=== PATIENT | female | born 1985 | race Caucasian/White ===

== ENCOUNTER → 2019-02-16 21:49 | Observation (INO) ==
[2019-02-16 20:12] LABS: Amphetamine Screen,Urine Negative ng/mL (Cutoff=1000); Barbiturate Screen,Urine Negative ng/mL (Cutoff=200); Benzodiazepines Screen,Urine Negative ng/mL (Cutoff=200); Cannabinoid Screen,Urine Positive ng/mL (Cutoff = 50); Cocaine Screen,Urine Negative ng/mL (Cutoff= 300); Opiate Screen,Urine Negative ng/mL (Cutoff=300); Phencyclidine Screen,Urine Negative ng/mL (Cutoff=25)
--- NOTE | 2019-02-16 20:44 | OB/GYN Progress Note ---
Date of Encounter: 02/16/19 Time of Encounter: 20:40 - Assessment and Plan (1) and not yet delivered in third trimester Current Visit: Yes Status: Acute (2) 40 weeks gestation of Current Visit: Yes Status: Acute (3) Grand multipara Current Visit: Yes Status: Acute (4) False labor after 37 completed weeks of gestation Current Visit: Yes Status: Acute Patient will be discharged home will return in a couple days for an elective induction of labor Subjective - Subjective Interval history: Patient is a 33-year-old 9 para 6026 at 40 and one sevenths weeks who was sent in from the office for induction of labor secondary to term history of hepatitis B and C positive and Subutex use. Patient has been noncompliant with her care care at approximately 15 weeks then did not get seen again until 24 weeks and 30 weeks and 37 weeks and on. Patient is GBS positive and because of her history she was sent to labor and delivery f or delivery. Due to our nursery being completely full patient was advised we would need to transfer her to [facility] for this delivery. Did advise a if she refused we could do the delivery but at the baby needed to go to the NICU the baby would have to go to [place] also. She did not want to do that either. Did try to explain to her unfortunately with her history the baby probably is going to require some time in the unit so it would be best just to transfer her and the baby and let them deliver in [place]. The case was discussed with maternal medicine who did agree the patient should be delivered at some point. Patient's baby is moving well she is not having any contractions and denies any leaking of fluid. At this point since patient is refusing to be transferred and does not want a baby to be transferred we did give her the option of coming back in a couple days for scheduled induction at that point the NICU should be cleaned out some and we should not have any issues if the baby needs go to the unit. Patient states she preferred to do that was made aware if she was to go into labor to come immediately back to the hospital we would then reassess her if she needed to be delivered would deliver and then addressed the baby at that time. Objective - Vital Signs Vital Signs: Intake and Output 02/16/19 02/16/19 02/16/19 07:59 15:59 23:59 Other: Weight 73.5 kg Patient Weight 02/16/19 23:59 Weight 73.5 kg - Exam FHR: category 1 FHR comments: heart tones 140s and reactive no contactions seen Auscultation: bilateral: normal Abdomen: Present: normal appearance, soft Cervical dilation: 2 Cervix effacement: 80 station: -2 - Labs Labs: Abnormal lab results Ur Buprenorphine Scrn Positive ng/mL (Cutoff=5) H 02/16/19 19:52 U Marijuana (THC) Screen Positive ng/mL (Cutoff = 50) H 02/16/19 19:52
--- NOTE | 2019-02-16 22:39 | Discharge Summary ---
Date of Encounter: 02/16/19 Time of Encounter: 22:38 - Discharge Diagnosis (1) 40 weeks gestation of Priority: Primary Status: Acute Comments: Admitted to observation for monitoring and possible delivery (2) Grand multipara Priority: Secondary Status: Acute Comments: Scheduled induction on 02/19/19 at 1000 (3) Hepatitis C Priority: Secondary Status: Acute Qualifiers: Viral hepatitis chronicity: chronic Hepatic coma status: without hepatic coma Qualified Code(s): B18.2 - Chronic viral hepatitis C (4) GBS (group B Streptococcus carrier), +RV culture, currently Priority: Secondary Status: Acute Comments: Treat with PCN-G per protocol. (5) Hepatitis B affecting in third trimester, antepartum Priority: Secondary Status: Acute Comments: Redraw HBSAG on admission for IOL Treat with HBIG (6) NST (non-stress test) reactive Priority: Secondary Status: Acute Comments: FHR 120 bpm, moderate variability, +15x15 accels, no decels. - Discharge Medications Prescriptions: No Action Buprenorphine HCl [Subutex] 8 mg SL DAILY Home Medications: Buprenorphine HCl [Subutex] 8 mg SL DAILY 12/05/18 [History] Allergies/Adverse Reactions: Allergy/AdvReac Type Severity Reaction Status Date / Time No Known Allergies Allergy Verified 12/05/18 08:10 Data Procedures and tests throughout hospitalization: Laboratory Tests 02/16/19 19:52 Urine Opiates Screen Negative Ur Buprenorphine Scrn Positive H Ur Barbiturates Screen Negative Ur Phencyclidine Scrn Negative Ur Amphetamines Screen Negative U Benzodiazepines Scrn Negative Urine Cocaine Screen Negative U Marijuana (THC) Screen Positive H Ur Drug Screen Interp See Below Labs on day of discharge: Labs from last 24 hours 02/16/19 19:52 Urine Opiates Screen Negative Ur Buprenorphine Scrn Positive H Ur Barbiturates Screen Negative Ur Phencyclidine Scrn Negative Ur Amphetamines Screen Negative U Benzodiazepines Scrn Negative Urine Cocaine Screen Negative U Marijuana (THC) Screen Positive H Ur Drug Screen Interp See Below Date of admission: 02/16/19 18:35 Discharging clinician: Baylee Joseph Anticipated date of discharge: 02/16/19 - Patient Status Disposition: Home, Self-Care Condition: Good Functional capacity at discharge: independent ambulation Overall status at discharge: patient is progressing back to baseline - Discharge Instructions Additional Instructions: LABOR AND DELIVERY DISCHARGE INSTRUCTIONS Signs and Symptoms to be Reported to your Doctor Immediately: * Sudden gush, continuous or intermittent lead of fluid from vagina (note the time of gush and color of fluid) * Onset of bright red vaginal bleeding with or without pain (if you had a vaginal exam during this visit you may notice some dark red spotting. This is normal.) * Contractions that are 5 minutes apart (from the beginning of one contraction to the beginning of the next) and last 45-60 seonds; contractions that you can no longer walk, talk or laugh through. * A change in the baby's activity. This could be an increase or decrease in activity. * Severe headache which does not go away with tylenol. * Sudden swelling in the face, hands, arms and/or legs. * Upper abdominal pain - sometimes associated with heartburn or nausea and is not relieved by Maalox, Mylanta or Tums. * Kick Counts __ One hour after a meal, lay down on one side in a quiet place. Count the number of time the baby moves during an hour. If less than 6 movements, notify your physician Diet: *Force fluids, 8 to 10 tall glasses of fluid per day - may include popsicles and jello *Limit caffeine - this includes chocolate, coffee, tea, any soft drink containing such as all jacek, Pihllip Yellow and Mountain Dew - Diet and Activity Activity: resume usual activities as tolerated Diet: regular diet Hospital Course [employer] Hospital course: See antepartum note from Dr. Lees Patient was agreeable to IOL on 02/19/[address] Lora was notified and is agreeable to induction on this date. [facility] was consulted by Dr. Lees. Time Attestation: Total time spent providing and/or coordinating discharge services: Time Spent: Less than 30 minutes Exam - Constitutional General appearance IM: A&O X 3, no acute distress - Respiratory Respiratory exam: Absent: respiratory distress - Cardiovascular Cardiovascular exam IM: Absent: irregular rhythm - GI/Abdominal GI/Abdominal exam IM: normal bowel sounds - Rectal Rectal exam: deferred - External exam: normal external exam - Extremities Exam Extremities exam IM: Present: full ROM, normal capillary refill, normal inspection. Absent: calf tenderness - Neurological Exam Neurological exam: alert, normal gait, oriented X3 - VTE Reasons for not Prescribing Prophylaxis: Treatment not Indicated - Low risk for VTE
== END | disposition home or self-care (01) ==
LOC: 1NENULAB
PROVIDERS: ADMIT Registered Nurse; ATTEND Registered Nurse

== ENCOUNTER 2019-02-19 10:00 | Inpatient (IN) ==
[2019-02-19] MEDS ORDERED: Metoclopramide 10 MG/2 ML VIAL IVP PRN (11:06)
[2019-02-19] MEDS ORDERED: Famotidine 20 MG/2 ML VIAL IVP PRN (11:06)
[2019-02-19] MEDS ORDERED: Lidocaine 1% 20 ML MDV INFILT PRN (11:06)
[2019-02-19] MEDS ORDERED: Naloxone 0.4 MG/ML INJ IVP PRN (11:06)
[2019-02-19] MEDS ORDERED: Ondansetron 4 MG/2 ML VIAL IVP PRN (11:06)
[2019-02-19] MEDS ORDERED: Penicillin G Potassium 5,000,000 UNIT in 0.9 % Sodium Chloride Mini Bag 100 ML IVPB ONE (11:27)
[2019-02-19] MEDS ORDERED: Ringers Solution, Lactated 0 ML ONE (11:41)
[2019-02-19] MEDS ORDERED: Oxytocin 20 units/ LR 1000 mL 20 UNIT/1,000 ML BAG IVC SCH (12:15)
--- NOTE | 2019-02-19 12:45 | OB/GYN History & Physical ---
Date of Encounter: 02/19/19 Time of Encounter: 12:38 Assessment and Plan (1) 40 weeks gestation of Current visit: Yes Status: Acute 33yo at 40+4wks GA who presents for scheduled IOL 1. Hx of polysubstance abust: - Patient UTox: + positive for amphetamine, MJ, narcotic positive subutex - Medical history: +HCV, +HBV, no FSE - GBS positive, ABx ordered for pateint - ARCADIO normal for GA, measuring appropriately - recommendatoin for delivery 2/2 parida and concern for PSA 2. FWB - s = d - denies VB/LOF/contraction(s) 3. MWB - normotensive - VSS/HDS, afebrile - denies VB/LOF/contractions [facility] [place]. MD LOUIE History of Present Illness Chief complaint: IOL HPI: Ms. Evans is a 33 year old female who preesmnts for schedule IOL at 40+4wks GA for HROB and dates The patient is HROB 2/2 hx of PSA. Patient is currently being seen with [facility] for her Subutex rx. Her PNC was scant with Dr. Salas, at which point she discussed her addiction, drug abuse, and poor dentition. This patient is also high risk, 2/2 hx of 5+ vaginal deliveries (grandmultigravida). She has a known hx of HBV and HCV. The patient was first seen by OBGYN on Friday 02/16 at which point the recommendation was for induction of labor, but the patient declined. She had issues with child-care and therefore was unable to stay - despite our education on the risks of continuing through with . Patient is aware that we will be unable to be perform scalp FSE due to medical hx of HCV. Patient is GBS positive, will need antibiotics. Past Med Surg Social Fam HX - Past Medical History Medical history: no medical history, other Additional medical history: BACK INJURY Psychiatric history: no psych history - Past Surgical History Additional surgical history: gall bladder removed 2000 - Social History Smoking Status: Current every day smoker Smokeless Tobacco Status: No Alcohol use: none Drug use: marijuana - Family History Mother Living Status: Hx Family Cancer: Yes (kidney cancer) Obstetrical History - Pregnancies : 9 Para: 6 Term: 6 : 0 Ab's: 2 Livin Medications and Allergies Buprenorphine HCl [Subutex] 8 mg SL BID 12/05/18 [History] Allergy/AdvReac Type Severity Reaction Status Date / Time No Known Allergies Allergy Verified 12/05/18 08:10 Exam - Constitutional Constitutional: well developed, well nourished, no acute distress, average body habitus - HEENT HEENT: Normocephaly, Mucus Membranes Moist - Neck Neck exam: full ROM - Lungs Respiratory exam: CTAB - Cardiovascular Cardiovascular exam: RRR - Abdomen Abdomen: Present: bowel sounds normal - Extremities Extremities exam: full ROM - Vagina Vagina: Present: normal moisture - Cervix Dilation: 2 Effacement: 70 Station: -2 - Uterus Uterus exam: Present: normal size, normal contour - Anus/Rectum Anus/Rectum: Present: normal perianal skin, heme negative Results All other labs normal. - VTE Reasons for not Prescribing Prophylaxis: Treatment not Indicated - Low risk for VTE
[2019-02-19 12:58] LABS: Basophils # 0.1 K/mcL (0.0-0.2); Basophils % 0.7 %; Eosinophils # 0.2 K/mcL (0.0-0.6); Eosinophils % 1.8 %; Hematocrit 37.7 % (35.3-44.9); Immature Granulocytes % 0.8 % (0-4); Lymphocytes % 22.2 %; Mean Corpuscular HGB Conc 34.5 g/dL (31.6-35.5); Mean Corpuscular Hemoglobin 32.2 pg (28.0-33.3); Mean Corpuscular Volume 93.3 fL (83.0-100.0); Mean Platelet Volume 10.9 fL (9.4-12.4); Monocytes # 0.8 K/mcL (0.0-1.3); Monocytes % 8.5 %; Neutrophils # 5.8 K/mcL (1.6-8.9); Platelet Count 274 K/mcL (140-400); Red Blood Count 4.04 M/mcL (3.82-4.97); Red Cell Distribution Width 14.2 % (11.5-14.5); White Blood Count 8.8 K/mcL (4.3-11.1)
[2019-02-19 13:17] LABS: Amphetamine Screen,Urine Negative ng/mL (Cutoff=1000); Barbiturate Screen,Urine Negative ng/mL (Cutoff=200); Benzodiazepines Screen,Urine Negative ng/mL (Cutoff=200); Cannabinoid Screen,Urine Positive ng/mL (Cutoff = 50); Cocaine Screen,Urine Negative ng/mL (Cutoff= 300); Opiate Screen,Urine Negative ng/mL (Cutoff=300); Phencyclidine Screen,Urine Negative ng/mL (Cutoff=25)
[2019-02-19] MEDS: Penicillin G Potassium 2,500,000 UNIT in 0.9 % Sodium Chloride 100 ML IVPB SCH ×2 (16:45→20:44)
[2019-02-19] MEDS ORDERED: Ringers Solution, Lactated 1,000 ML ONE ×2 (16:50→20:01)
[2019-02-19] MEDS ORDERED: Epidural Premix (fent/bupiv) 110 ML EP SCH (17:30)
[2019-02-19] MEDS ORDERED: Epidural Premix (fent/bupiv) 110 ML EP ONE (17:32)
--- NOTE | 2019-02-19 18:37 | Anesthesia Evaluation PreOp ---
Date of Encounter: 02/19/19 Time of Encounter: 16:30 - Past History Planned Operation: felix Cardiac History: Denies any Significant Hx Pulmonary History: Smoker LANDSCAPE DRAFTER History: Denies Any Significant HX Other Medical History: Other (sobutex) Anesthesia History: No Prior Anesthetic Complications : Yes Test: Positive Alcohol Use: none Drug use: marijuana, IV Drug Use Medications and Allergies Buprenorphine HCl [Subutex] 8 mg SL BID 12/05/18 [History] Allergy/AdvReac Type Severity Reaction Status Date / Time No Known Allergies Allergy Verified 12/05/18 08:10 - Meds/Allergy Pre-op Review Medications Reviewed: Yes Allergies Reviewed: Yes Beta Blockers on Current Med List: No Anesthesia Results - Labs 02/19/19 11:25 Anesthesia Exam - HEENT Pupil (Motor): Pupils equal Mallampati: II Teeth: Normal Oral Opening: Greater than 3 - LANDSCAPE DRAFTER LOC: Oriented LANDSCAPE DRAFTER Motor: Normal RUE, Normal LUE, Normal RLE, Normal LLE, Normal Face LANDSCAPE DRAFTER Sensory: Normal: RUE, LUE, RLE, LLE, Face - Cardiac Rhythm: Regular Murmur: None JVD: No Carotid Bruit: No - Pulmonary Breath Sounds: bilateral Clear Respiratory Effort: Symmetrical Anesthesia Assess/Plan ASA Score: 2 Level of consciousness: Cooperative Anesthetic Plan: Epidural
--- NOTE | 2019-02-19 18:40 | Anesthesia Procedures ---
Date of Encounter: 02/19/19 Time of Encounter: 17:30 Procedures: Anesthesia - Epidural/Spinal Patient ID/Chart reviewed: Yes Patient examined: Yes OB Eval: Gestational age: 39 OB Eval: : 8 OB Eval: Hx Para: 6 OB Eval: Dilated at (cm): 4 OB Eval: Contractions: Non-stressed pattern Consent Obtained: Yes Site Prep: Aseptic Technique, Sterile prep and drape, Povidone-Iodine 1% Patient position: upright Amount of Local Anesthetic used: 3 Touhy Needle Gauge: 18 Touhy Needle Depth (cm): 5 Catheter Depth at Skin (cm): 7 Test Dose (1.5% Lido + Epi): Volume given (mls): 3 Test Dose Result: Negative Loading Dose Administered: Thru Catheter Infusion Rate (mls/hr): [address]: Tegaderm, Tape Interspace Used: L4-L5 Loss of Resistance (ERIKA): Yes Blood: No CSF: No Paresthesia: No Vitals + FHT's: no anesthesia complications VSS FHTS
[2019-02-19] MEDS ORDERED: Ropivacaine /PF 1% 100 MG/10 ML VIAL ONE (19:52)
--- NOTE | 2019-02-20 00:09 | Event Note ---
Date of Encounter: 02/20/19 Time of Encounter: 00:06 Patient with NST review 6CM/80/-2, head not engaged SROM'd clear fluid Hx of HCV/HBV Patient with IUPC in place Patient has had low baseline with accelerations and moderate variability. Intermittent periods of minimal variability, however the patient has had a baseline of 105-110 since admission. Because the patient is taking Subutex in November of 2018 [place] from her provider for her hx of PSA and IV heroin. This can cause baseline FHT to be lower than normal. She does respond appropriately to acoustic stimulation and scalp stimulation. Will continue to progress toward . MD LOUIE
--- NOTE | 2019-02-20 00:48 | Anesthesia Progress Note ---
Date of Encounter: 02/20/19 Time of Encounter: 00:06 Anesthesia Note - Note Note: called to patient bedside for pain level 8 with contractions. Naropin 1% bolus 5ml. pump rate increased to 15. states immediate relief of pain VSS FHTS 02/20/19 00:46
[2019-02-20] MEDS ORDERED: Ringers Solution, Lactated 1,000 ML ONE (04:01)
[2019-02-20] MEDS ORDERED: Methylergonovine 0.2 MG/ML AMPUL IM ONE ×2 (04:16→09:59)
[2019-02-20] MEDS ORDERED: miSOPROStol 100 MCG TABLET RC STA (04:16)
--- NOTE | 2019-02-20 04:29 | OB/GYN Procedure Note ---
Delivery - Delivery Date: 02/20/19 Provider: Juana Lora Intrapartum events: none, febrile- temp >100.3 Delivery induction: AROM, oxytocin Delivery augmentation: pitocin Delivery monitor: external FHT, external uterine, internal uterine Anesthesia: epidural Quantitated Blood Loss: 400 - (s) A Delivery Date: 02/20/19 Delivery Time: 04:01 Presentation: vertex Position: OA Route of delivery: Gender: Female Viability: Viable Pounds: 7 Ounces: 6 Weight Gram: 3345 kg at 1 minute: 9 at 5 mins: 9 Specimens collected: cord blood Placenta: spontaneous Cord: other (body cord and delivered) - Repair Episiotomy: none Laceration Description: None - Complications Delivery complications: uterine atony - Disposition Mom disposition: stable in LDR - Comments Comments: Called to patient at bedside for excessive yelling. Patient C/C/0. Poor maternal effort with pushing despite having epidural. With multiple pushes and aggressive coaching, we were able to bring the head to the level of the introitus. delivered atraumatically in the direct OA position. Body cord was delivered through. placed on maternal abdomen. Baby girl was vigorous and crying. Cord delay was allowed. Clamped and cut. Cord blood and segment was taken. Placenta was delivered (grade III) with appropriate but stab le traction. WIll sent placenta to pathology. NO lacerations appreciated. Two doses of methergine and 500mg of rectal misoprostol was administered. Patient was very tender to palpation following delivery and was demanding that we stop. Fundus was firm. No sulcal laceration(s) visualized. No perineal lacerations. No periurethral lacerations appreciated. Apgars 9/9 EBL 400mL weight: 7#6oz (3345gm) Delivery 0401 Counts correct x3. Hemostasis appreciated with slght ooze. MD LOUIE
[2019-02-20] MEDS ORDERED: Benzocaine/Menthol 56 GM AEROSOL SPRAY TP PRN (04:43)
[2019-02-20] MEDS ORDERED: Lanolin 7 G OINT...G. TP PRN (04:43)
[2019-02-20] MEDS ORDERED: Oxytocin 20 units/ LR 1000 mL 20 UNIT/1,000 ML BAG IVC SCH (04:43)
[2019-02-20] MEDS: Ibuprofen 600 MG TABLET PO PRN ×2 (04:58→16:35)
[2019-02-20] MEDS: *HR* Buprenorphine HCl 8 MG TAB.SUBL SL SCH ×2 (04:58→16:35)
[2019-02-20] MEDS: Acetaminophen 325 MG TABLET PO PRN (08:29)
[2019-02-20] MEDS: Prenatal Vit/FA 1 EACH TABLET PO SCH (08:29)
[2019-02-20] MEDS ORDERED: miSOPROStol 100 MCG TABLET PO ONE (09:59)
[2019-02-21] MEDS: Ibuprofen 600 MG TABLET PO PRN (05:39)
[2019-02-21] MEDS: *HR* Buprenorphine HCl 8 MG TAB.SUBL SL SCH (05:40)
--- NOTE | 2019-02-21 08:16 | Discharge Summary ---
Date of Encounter: 02/21/19 Time of Encounter: 08:12 - Discharge Diagnosis (1) Vaginal delivery Priority: Primary Status: Acute Comments: S/P Vaginal delivery day 1 Pain is well controlled Lochia is light and without clots VSS Tolerating regular diet; passing flatus Voiding without difficulty Breast feeding Discharge today (guest - infant 5 day hold) - Discharge Medications Prescriptions: New Breast Pump [BREAST PUMP] 1 each .ROUTE AD #1 each Docusate [Colace] 100 mg PO BID #30 capsule Benzocaine/Menthol Marion [Dermoplast Marion] 1 appl TP QID PRN aerosol PRN Reason: See Comments Lanolin [Lansinoh] 1 appl TP TID PRN oint...g. PRN Reason: Ibuprofen [Motrin] 600 mg PO Q6HR PRN #30 tablet PRN Reason: Cramping Acetaminophen [Tylenol] 650 mg PO Q6HR PRN tablet PRN Reason: Mild Pain Continued Buprenorphine HCl [Subutex] 8 mg SL BID Home Medications: Buprenorphine HCl [Subutex] 8 mg SL BID 12/05/18 [History] Acetaminophen [Tylenol] 650 mg PO Q6HR PRN tablet 02/21/19 [Rx] Benzocaine/Menthol Marion [Dermoplast Marion] 1 appl TP QID PRN aerosol 02/21/19 [Rx] Breast Pump [BREAST PUMP] 1 each .ROUTE AD #1 each 02/21/19 [Rx] Docusate [Colace] 100 mg PO BID #30 capsule 02/21/19 [Rx] Ibuprofen [Motrin] 600 mg PO Q6HR PRN #30 tablet 02/21/19 [Rx] Lanolin [Lansinoh] 1 appl TP TID PRN oint...g. 02/21/19 [Rx] Allergies/Adverse Reactions: Allergy/AdvReac Type Severity Reaction Status Date / Time No Known Allergies Allergy Verified 12/05/18 08:10 Data Procedures and tests throughout hospitalization: Laboratory Tests 02/19/19 02/19/19 02/19/19 11:25 11:25 11:25 WBC 8.8 RBC 4.04 Hgb 13.0 Hct 37.7 MCV 93.3 MCH 32.2 MCHC 34.5 RDW 14.2 Plt Count 274 MPV 10.9 Immature Gran % 0.8 Seg Neutrophils % 66.0 Lymphocytes % 22.2 Monocytes % 8.5 Eosinophils % 1.8 Basophils % 0.7 Neutrophils # 5.8 Lymphocytes # 2.0 Monocytes # 0.8 Eosinophils # 0.2 Basophils # 0.1 Urine Opiates Screen Negative Ur Buprenorphine Scrn Positive H Ur Barbiturates Screen Negative Ur Phencyclidine Scrn Negative Ur Amphetamines Screen Negative U Benzodiazepines Scrn Negative Urine Cocaine Screen Negative U Marijuana (THC) Screen Positive H Ur Drug Screen Interp See Below Hep Bs Antigen Reactive H Hepatitis C Ab Screen 02/19/19 11:25 WBC RBC Hgb Hct MCV MCH MCHC RDW Plt Count MPV Immature Gran % Seg Neutrophils % Lymphocytes % Monocytes % Eosinophils % Basophils % Neutrophils # Lymphocytes # Monocytes # Eosinophils # Basophils # Urine Opiates Screen Ur Buprenorphine Scrn Ur Barbiturates Screen Ur Phencyclidine Scrn Ur Amphetamines Screen U Benzodiazepines Scrn Urine Cocaine Screen U Marijuana (THC) Screen Ur Drug Screen Interp Hep Bs Antigen Hepatitis C Ab Screen Reactive H Date of admission: 02/19/19 10:31 Primary care physician: PCP MATEUS Consults: 02/20/19 04:43 Consult to [place] [CONS] Routine Comment: Vaginal delivery, consult needed Consult to Economics Professor [CONS] Routine Reason for SW Consult: Subutex program Discharging clinician: Juana Shay Anticipated date of discharge: 02/21/19 - Patient Status Disposition: Home, Self-Care Condition: Good Functional capacity at discharge: independent ambulation Overall status at discharge: patient is progressing back to baseline - Discharge Instructions Follow Up With: NONE,PCP [Primary Care Provider] - Juana Lora MD [Partnered Physician] - - Diet and Activity Activity: increase activity as tolerated Diet: regular diet Hospital Course Reason for admission: IUP at term Delivery: Episiotomy: none Other procedures: none complications: none Discharge diagnosis: IUP at term delivered baby: female Time Attestation: Total time spent providing and/or coordinating discharge services: Time Spent: Less than 30 minutes Exam - Constitutional Vitals: Temp Pulse Resp BP Pulse Ox 98.4 F 66 16 113/70 98 02/20/19 21:55 02/20/19 21:55 02/20/19 21:55 02/20/19 21:55 02/20/19 21:55 General appearance IM: cooperative, A&O X 3, pleasant - Respiratory Respiratory exam: Present: CTAB - Cardiovascular Cardiovascular exam IM: Present: RRR, +S1, +S2 - GI/Abdominal GI/Abdominal exam IM: normal bowel sounds, soft - Rectal Rectal exam: deferred - Uterine Tone: Firm Uterus Position: 2 Fingers Below Umbilicus, Midline - Extremities Exam Extremities exam IM: Present: normal capillary refill, normal inspection, radial pulses palpable and symmetrical - Neurological Exam Neurological exam: alert, oriented X3
[2019-02-21 09:08] VITALS: BP 132/76
[2019-02-21] MEDS: Prenatal Vit/FA 1 EACH TABLET PO SCH (09:39)
[2019-02-21] MEDS: Acetaminophen 325 MG TABLET PO PRN (09:40)
== END 2019-02-21 10:00 | disposition home or self-care (01) | DRG 560 ==
LOC: 1NENULAB 10:31 → 1NENUOBS 02-20 06:44
PROVIDERS: ADMIT Student in an Organized Health Care Education/Training Program; ATTEND Student in an Organized Health Care Education/Training Program